=== PATIENT | female | born 1955 | race Caucasian/White ===

== ENCOUNTER → 2017-05-03 15:40 | Outpatient (CLI) | payer OTHER, SELFPAY ==
--- NOTE | 2017-05-03 15:52 | EKG12_ITS ---
Test Reason : PRE-OP Blood Pressure : / mmHG Vent. Rate : 080 BPM Atrial Rate : 080 BPM P-R Int : 152 ms QRS Dur : 088 ms QT Int : 380 ms P-R-T Axes : 068 066 056 degrees QTc Int : 438 ms Normal sinus rhythm Normal ECG No previous ECGs available Confirmed by NANCY HOLM, OCTAVIO ([id number]), publications editor AUBREE LOPEZ ([id number]) on 05/08/2017 4:14:49 PM Referred By: Demond Rodriguez Confirmed By:OCTAVIO CRUZ MD
[2017-05-03 16:44] LABS: Hematocrit 42.2 % (37-47); Mean Corp Hgb Conc 33.2 g/gl (32-36); Mean Corpuscular Hgb 27.6 pg (27.0-32.0); Mean Corpuscular Volume 83.1 fL (81-99); Mean Platelet Vol. 10.1 fl (6.2-12.0); Platelet Count 357 K/mm3 (150-450); RBC Distribution Width CV 13.7 % (11.6-14.6); RBC Distribution Width SD 41.6 fl (35.1-43.9); Red Blood Count 5.08 M/mm3 (4.2-5.4); White Blood Count 13.4 K/mm3 (4.4-11.0)
[2017-05-03 16:50] LABS: Scan Indicated on CBC? Y/N NO
[2017-05-03 17:02] LABS: Anion Gap 5 (5-15); BUN 15 mg/dL (7-18); BUN/Creat Ratio 18.8 RATIO (10-20); Chloride 109 mmol/L (98-107); EST Glomerular Filtration Rate 77 mL/min (>60); Est Glom Filt Rate - Afr Amer 93 mL/min (>60); Glucose 85 mg/dL (74-106); Potassium 4.4 mmol/L (3.5-5.1); Sodium Level 141 mmol/L (136-145)
== END ==
PROVIDERS: Family Provider Family Medicine; PCP Family Medicine; Visit Provider Physician Assistant
DX: Z01.810 Encounter for preprocedural cardiovascular examination (principal); Z01.818 Encounter for other preprocedural examination
CPT/HCPCS: 36415; 80048; 85027; 93005

== ENCOUNTER → 2019-01-13 14:59 | Outpatient (CLI) | payer OTHER, SELFPAY ==
--- NOTE | 2019-01-13 15:03 | BI_ITS ---
MAMMOGRAPHY - BILATERAL SCREENING REASON FOR EXAM: Female, 63 years old. Routine annual screening examination. PERTINENT HISTORY: Non-contributory. Remote right stereotactic breast biopsy. TECHNIQUE: Digital bilateral breast amelia (3D mammographic acquisition) in the CC and MLO projections. 2-D mediolateral oblique (MLO) and craniocaudad (CC) views of both breasts were obtained. CAD: Full Field Digital Mammography with Computer Added Detection was performed. COMPARISON: Comparison is made with prior study dated January 24, 2017 and September 06, 2015. FINDINGS: Breast Composition: There are scattered areas of fibroglandular density. There are no dominant masses or suspicious calcifications. Stable small benign-appearing bilateral axillary lymph nodes. No other significant abnormalities are identified. There has been no significant change since the prior study. BI/SCREEN MAMM (CAD) W/AMELIA BILAT IMPRESSION: Stable bilateral screening mammogram. Yearly follow-up mammogram recommended. (A) ASSESSMENT CATEGORY: BIRADS Category 2: Benign. A letter regarding these results will be sent to the patient by the facility within 30 days. Approximately 10% of breast cancers are not detected by mammography. A normal mammogram should not delay biopsy of a clinically suspicious abnormality. [id number] Electronically Signed: Maximilian Kilpatrick, at 8:04 EST , Service support ,
--- NOTE | 2019-01-13 15:18 | BD_ITS ---
STUDY: DUAL ENERGY X-RAY ABSORPTIOMETRY / DXA REASON FOR EXAM: Female, 63 years old. The patient is postmenopausal. Loss of height. TECHNIQUE: Bone Mineral Density (BMD) measurements of lumbar spine and bilateral hips were obtained. COMPARISON: Comparison is made with prior study dated September 06, 2015. FINDINGS: Lumbar Spine (L1-L4): g/cm2 (1.182) / T-score (0.1) / Z-score (1.7) Findings are suggestive of normal bone density with a low fracture risk. Left Femur Total: g/cm2 (1.041) / T-score (0.3) / Z-score (1.5) Left Femoral Neck: g/cm2 (1.033) / T-score (0.0) / Z-score (1.4) Right Femur Total: g/cm2 (1.022) / T-score (0.1) / Z-score (1.3) Right Femoral Neck: g/cm2 (0.933) / T-score (-0.8) / Z-score (0.7) The T-Scores on the most recent prior examination were: Lumbar Spine (L1-L4): There has been worsening of bone density since the previous examination. Left Femur Total: which represents a worsening of 6.8%. Right Femur Total: which represents a worsening of 6.1%. BD/Dexa Bone Density Study IMPRESSION: The patient is considered normal as outlined below according to World Adan Organization (WHO) criteria with a low fracture risk. There has been worsening of bone density since the previous examination. Reference Information: The T-score is the number of standard deviations above or below the standard which is normal for young adults at their peak bone mineral density. The World Health Organization (WHO) interprets the T-scores as follows: Above -1 Normal bone density Between -1 and -2.5 Osteopenia Equal to / or below -2.5 Osteoporosis As a practical clinical guideline, osteopenia may be graded as follows: Mild -1 through -1.5 Moderate -1.6 through -2.0 Severe -2.1 through -2.4 The Z-score is the number of standard deviations above or below age-matched controls. A Z-score of less than -1.5 would be considered abnormal. References: 1. NIH Osteoporosis and Related Bone Diseases http://www.osteo.org 2. International Society for Clinical Densitometry http://www.iscd.org 3. National Osteoporosis Foundation http://www.nof.org Electronically Signed: Maximilian Kilpatrick, at 13:14 EST , Service support ,
== END ==
PROVIDERS: Family Provider Family Medicine; PCP Family Medicine; Referring Provider Obstetrics & Gynecology Gynecology; Visit Provider Obstetrics & Gynecology Gynecology
DX: Z12.31 Encounter for screening mammogram for malignant neoplasm of breast (principal); Z78.0 Asymptomatic menopausal state; Z13.820 Encounter for screening for osteoporosis
CPT/HCPCS: 77063; 77067; 77080

== ENCOUNTER 2020-03-21 13:37 | Emergency (ER) | payer OTHER, SELFPAY ==
[2020-03-21 13:39] VITALS: BP 189/115; PULSE 54; RESP 18; TEMP 35.4; O2SAT 96; BMI 39.7
--- NOTE | 2020-03-21 13:47 | EKG12_ITS ---
Test Reason : CP Blood Pressure : / mmHG Vent. Rate : 089 BPM Atrial Rate : 089 BPM P-R Int : 134 ms QRS Dur : 084 ms QT Int : 358 ms P-R-T Axes : 045 030 048 degrees QTc Int : 435 ms Sinus rhythm with occasional Premature ventricular complexes Confirmed by KATHLEEN HOLM, MARTHA ([id number]), news editor AUBREE LOPEZ ([id number]) on 03/24/2020 11:46:54 AM Referred By: MYRIAM Confirmed By:MARTHA WANG MD
--- NOTE | 2020-03-21 14:26 | ED.DCSUM_ITS ---
History of Present Illness Chief Complaint: Palpitations Narrative: This patient is a 64-year-old female who was sent over by her nurse practitioner due to an abnormal EKG. Patient has had problems with elevated blood pressure for a couple of months. She says she has had some intermittent chest pressure she denies any chest pain currently. No shortness of breath. No lightheadedness or dizziness. She had made an appointment and was seen today. She had an EKG which showed sinus rhythm with frequent PVCs so was sent here for further evaluation. She otherwise denies any recent illness. No fevers vomiting diarrhea. She takes some supplements but is not treated for diabetes, hypertension, or hyperlipidemia. Past Medical History - Allergies and Home Meds Allergies/Adverse Reactions: Allergies Sulfa (Sulfonamide Antibiotics) Allergy (Verified 03/21/20 13:39) PT UNSURE OF REACTION Primary Care Physician: Billy Goddard III, MD [Primary Care Provider] - Past Medical History: None Review of Systems All systems negative except as indicated General: Denies: Fever Eyes: Denies: Visual changes - bilaterally ENT: Denies: Bilateral ear pain Cardiovascular: Denies: Chest pain Respiratory: Denies: Dyspnea Gastrointestinal: Denies: Nausea, Vomiting Musculoskeletal: Denies: Myalgias, Arthralgias Skin: Denies: Rash Neurological: Denies: Headache Allergy: Denies: Uticaria Physical Exam Vital Signs/Narrative: Vital Signs Temp Pulse Resp BP Pulse Ox 03/21/20 13:39 95.8 F L 54 L 18 189/115 H 96 Inital Vital Signs reviewed: Yes General: Well nourished Head: Normocephalic Eyes: EOMI ENT: Moist mucous membranes Neck: Supple Cardiovascular: Regular rate, Regular rhythm Respiratory: No distress, CTA bilaterally Abdomen: Soft, Nontender Extremities: Nontender Skin: Normal color Neurological: Alert Psychological: Normal affect Diagnostic/Tx/Re-eval Impressions Chest X-Ray 03/21/20 14:28 IMPRESSION: No acute abnormality is seen. Electronically Signed: Maximilian Kilpatrick MD at 15:35 EST , Service support , 03/21/20 14:28 Chest 1 View (Portable) [RAD] Stat Laboratory Results 03/21/20 03/21/20 14:45 14:45 WBC 10.9 RBC 4.75 Hgb 13.6 Hct 40.4 MCV 85.1 MCH 28.6 MCHC 33.7 RDW Std Deviation 39.7 RDW Coeff of Rich 12.9 Plt Count 361 MPV 10.1 Immature Gran % (Auto) 0.500 Neut % (Auto) 73.8 H Lymph % (Auto) 17.9 L [place] % (Auto) 6.3 Eos % (Auto) 0.7 Baso % (Auto) 0.8 Absolute Neuts (auto) 8.0 H Absolute Lymphs (auto) 1.95 Nucleated RBC % 0 Sodium 141 Potassium 4.0 Chloride 108 H Carbon Dioxide 26.0 Anion Gap 7 BUN 13 Creatinine 0.78 Estim Creat Clear Calc 55.82 Est GFR (MDRD) Af Amer 95 Est GFR (MDRD) Non-Af 79 BUN/Creatinine Ratio 16.8 Glucose 97 Calcium 9.2 Magnesium 2.2 Troponin I < 0.015 - Medical Decision Making EKG shows sinus rhythm with frequent PVCs otherwise normal. No acute ischemic changes. Labs are normal. Electrolytes and magnesium are normal. Troponin is negative. One-view portable chest x-ray was obtained. On my interpretation the showed no acute process. Radiology did read this and agrees no acute findings. Patient is asymptomatic at this time. I do not believe she requires hospitalization. I did speak to her primary care provider. We will start Toprol-XL both for hypertension this may help with PVCs as well. Patient vies to follow-up as an outpatient she understands return for new or worsening symptoms. ED Disposition - Plan for ED Patient: Disposition: Home or Assisted Living Diagnosis: Hypertension, PVCs (premature ventricular contractions) Instructions: Premature Ventricular Contractions, ED Hypertension, New (Begin Treatment) Prescriptions: Metoprolol Succinate [Toprol Xl] 25 mg PO DAILY #30 tab.er.24h Prescription Printed Referrals: Billy Goddard III, MD [Primary Care Provider] - Dakota Bravo MD [STAFF PHYSICIAN] -
--- NOTE | 2020-03-21 14:28 | RAD_ITS ---
STUDY: X-RAY CHEST REASON FOR EXAM: Female, 64 years old. Pt states chest pressure and palpitations x couple months TECHNIQUE: Single AP portable view of the chest. COMPARISON: None. FINDINGS: EKG electrodes are seen. Mild elevation of the right hemidiaphragm. The lungs are clear. There is no demonstrated pleural abnormality. Normal size heart. Normal mediastinum and april. Normal visualized pulmonary arteries. There is atherosclerotic tortuosity of the aortic arch and descending thoracic aorta. There are diffuse degenerative changes of the visualized thoracic spine. Normal visualized ribs, clavicles, and shoulders. There is no demonstrated abnormality of the visualized soft tissue structures of the upper abdomen. RAD/Chest 1 View (Portable) IMPRESSION: No acute abnormality is seen. Electronically Signed: Maximilian Kilpatrick MD at 15:35 EST , Service support ,
[2020-03-21 14:58] LABS: Absolute Lymphocyte Count 1.95 X10^3/uL (0.83-4.51); Basophil# 0.09 X10^3/uL; Basophil% 0.8 % (0-1); Eosinophil# 0.08 X10^3/uL; Eosinophils% 0.7 % (0-5); Hematocrit 40.4 % (37-47); Hemoglobin 13.6 g/dL (12.0-15.0); Lymphocyte # 1.95 X10^3/ul (4.0); Lymphocyte % 17.9 % (19-41); Mean Corp Hgb Conc 33.7 g/dL (32-36); Mean Corpuscular Hgb 28.6 pg (27.0-32.0); Mean Corpuscular Volume 85.1 fL (81-99); Mean Platelet Vol. 10.1 fl (6.2-12.0); Monocyte# 0.69 X10^3/uL; Monocyte% 6.3 % (0-10); NRBC Flagged by Analyzer 0 % (0-5); Neutrophil # 8.01 X10^3/uL (2.7-7.7); Neutrophil % 73.8 % (47-70); Platelet Count 361 K/mm3 (150-450); RBC Distribution Width CV 12.9 % (11.6-14.6); RBC Distribution Width SD 39.7 fl (35.1-43.9); Red Blood Count 4.75 M/mm3 (4.2-5.4); White Blood Count 10.9 K/mm3 (4.4-11.0)
[2020-03-21 15:13] LABS: Anion Gap 7 (5-15); BUN 13 mg/dL (7-18); BUN/Creat Ratio 16.8 RATIO (10-20); Calcium,Total 9.2 mg/dL (8.5-10.1); Chloride 108 mmol/L (98-107); Creatinine, Serum 0.78 mg/dL (0.55-1.02); EST Glomerular Filtration Rate 79 mL/min (>60); Est Glom Filt Rate - Afr Amer 95 mL/min (>60); Estimated Creatinine Clearance 55.82 ml/min; Glucose 97 mg/dL (74-106); Magnesium 2.2 mg/dL (1.6-2.6); Sodium Level 141 mmol/L (136-145)
[2020-03-21 16:12] VITALS: BP 132/60; PULSE 67; RESP 16; O2SAT 98
== END 2020-03-21 16:15 | disposition home or self-care (01) ==
PROVIDERS: Emergency Provider Emergency Medicine; PCP Family Medicine
DX: I49.3 Ventricular premature depolarization (principal); I10 Essential (primary) hypertension; R07.89 Other chest pain; Z79.899 Other long term (current) drug therapy; Z88.2 Allergy status to sulfonamides
CPT/HCPCS: 71045; 80048; 83735; 84484; 85025; 93005; 99284; A4216

== ENCOUNTER → 2020-08-24 13:57 | Outpatient (CLI) | payer OTHER, SELFPAY ==
--- NOTE | 2020-08-24 14:00 | BI_ITS ---
MAMMOGRAPHY - BILATERAL SCREENING REASON FOR EXAM: Female, 64 years old. Routine annual screening examination. PERTINENT HISTORY: Non-contributory. Remote right stereotactic breast biopsy. TECHNIQUE: Digital bilateral breast amelia (3D mammographic acquisition) in the CC and MLO projections. 2-D mediolateral oblique (MLO) and craniocaudad (CC) views of both breasts were obtained. CAD: Full Field Digital Mammography with Computer Added Detection was performed. COMPARISON: Comparison is made with prior examination 01/13/2019 and 01/24/2017. FINDINGS: Breast Composition: There are scattered areas of fibroglandular density. There are no dominant masses or suspicious calcifications. Stable small benign appearing bilateral axillary lymph nodes. No other significant abnormalities are identified. There has been no significant change since the prior study. BI/SCRN MAMM (CAD)W/AMELIA BILAT IMPRESSION: Stable bilateral screening mammogram. Yearly follow-up mammogram recommended. (A) ASSESSMENT CATEGORY: BIRADS Category 2: Benign. A letter regarding these results will be sent to the patient by the facility within 30 days. Approximately 10% of breast cancers are not detected by mammography. A normal mammogram should not delay biopsy of a clinically suspicious abnormality. [id number] Electronically Signed: Maximilian Kilpatrick MD at 14:55 EDT , Service support ,
== END ==
PROVIDERS: PCP Family Medicine; Referring Provider Family Medicine; Visit Provider Family Medicine
DX: Z12.31 Encounter for screening mammogram for malignant neoplasm of breast (principal)
CPT/HCPCS: 77063; 77067

== ENCOUNTER → 2022-02-01 | Outpatient (CLI) | payer OTHER, SELFPAY ==
--- NOTE | 2022-02-01 15:18 | BI_ITS ---
MAMMOGRAPHY - BILATERAL SCREENING REASON FOR EXAM: Female, 66 years old. Routine annual screening examination. PERTINENT HISTORY: Non-contributory. Remote right stereotactic breast biopsy. TECHNIQUE: Digital bilateral breast amelia (3D mammographic acquisition) in the CC and MLO projections. 2-D mediolateral oblique (MLO) and craniocaudad (CC) views of both breasts were obtained. CAD: Full Field Digital Mammography with Computer Added Detection was performed. COMPARISON: Comparison is made with prior examination dated 08/24/2020 and 01/13/2019. FINDINGS: Breast Composition: There are scattered areas of fibroglandular density. There are no dominant masses or suspicious calcifications. No other significant abnormalities are identified. There has been no significant change since the prior study. BI/SCRN MAMM (CAD)W/AMELIA BILAT IMPRESSION: Stable bilateral screening mammogram. Yearly follow-up mammogram recommended. (A) ASSESSMENT CATEGORY: BIRADS Category 1: Negative. A letter regarding these results will be sent to the patient by the facility within 30 days. Approximately 10% of breast cancers are not detected by mammography. A normal mammogram should not delay biopsy of a clinically suspicious abnormality. [id number] Electronically Signed: Maximilian Kilpatrick MD at 8:20 EST ,
--- NOTE | 2022-02-01 15:18 | BD_ITS ---
STUDY: DUAL ENERGY X-RAY ABSORPTIOMETRY / DXA REASON FOR EXAM: Female, 66 years old. 627.8Menopausal postmenopausalBONE DENSITY REASON FOR EXAM TECHNIQUE: Bone Mineral Density (BMD) measurements of lumbar spine and bilateral hips were obtained. COMPARISON: Comparison is made with prior study dated 01/13/2019. FINDINGS: Lumbar Spine (L1-L4): g/cm2 (1.071) / T-score (0.8) / Z-score (2.7) Findings are suggestive of normal bone density with a low fracture risk. Left Femur Total: g/cm2 (0.950) / T-score (0.1) / Z-score (1.5) Left Femoral Neck: g/cm2 (0.860) / T-score (0.1) / Z-score (1.8) Right Femur Total: g/cm2 (0.925) / T-score (-0.1) / Z-score (1.3) Right Femoral Neck: g/cm2 (0.824) / T-score (-0.2) / Z-score (1.5) The T-Scores on the most recent prior examination were: Lumbar Spine (L1-L4): There has been improvement of bone density since the previous examination. Left Femur Total: which represents a worsening of 2.5%. Right Femur Total: which represents a worsening of 3.1%. BD/Dexa Bone Density Study IMPRESSION: The patient is considered normal as outlined below according to World Adan Organization (WHO) criteria with a low fracture risk. There has been worsening of bone density since the previous examination. Reference Information: The T-score is the number of standard deviations above or below the standard which is normal for young adults at their peak bone mineral density. The World Health Organization (WHO) interprets the T-scores as follows: Above -1 Normal bone density Between -1 and -2.5 Osteopenia Equal to / or below -2.5 Osteoporosis As a practical clinical guideline, osteopenia may be graded as follows: Mild -1 through -1.5 Moderate -1.6 through -2.0 Severe -2.1 through -2.4 The Z-score is the number of standard deviations above or below age-matched controls. A Z-score of less than -1.5 would be considered abnormal. References: 1. NIH Osteoporosis and Related Bone Diseases www osteo.org 2. International Society for Clinical Densitometry www iscd.org 3. National Osteoporosis Foundation www nof.org Electronically Signed: Maximilian Kilpatrick MD at 12:55 EST ,
== END | disposition home or self-care (01) ==
LOC: OPBD 15:15
PROVIDERS: PCP Family Medicine; Visit Provider Family Medicine
DX: Z12.31 Encounter for screening mammogram for malignant neoplasm of breast (principal); Z78.0 Asymptomatic menopausal state
CPT/HCPCS: 77063; 77067; 77080

== ENCOUNTER → 2023-02-04 | Outpatient (CLI) | payer OTHER, SELFPAY ==
--- NOTE | 2023-02-04 14:57 | BI_ITS ---
MAMMOGRAPHY - BILATERAL SCREENING REASON FOR EXAM: Female, 67 years old. Routine annual screening examination. PERTINENT HISTORY: Non-contributory. History of prior right stereotactic breast biopsy. TECHNIQUE: Digital bilateral breast amelia (3D mammographic acquisition) in the CC and MLO projections. 2-D mediolateral oblique (MLO) and craniocaudad (CC) views of both breasts were obtained. CAD: Full Field Digital Mammography with Computer Added Detection was performed. COMPARISON: Comparison is made with prior study dated February 01, 2022 and August 24, 2020. FINDINGS: Breast Composition: There are scattered areas of fibroglandular density. There are no dominant masses or suspicious calcifications. Stable small benign-appearing bilateral axillary lymph nodes. No other significant abnormalities are identified. There has been no significant change since the prior study. BI/SCRN MAMM (CAD)W/AMELIA BILAT IMPRESSION: Stable bilateral screening mammogram. Yearly follow-up mammogram recommended. (A) ASSESSMENT CATEGORY: BIRADS Category 2: Benign. A letter regarding these results will be sent to the patient by the facility within 30 days. Approximately 10% of breast cancers are not detected by mammography. A normal mammogram should not delay biopsy of a clinically suspicious abnormality. [id number] Electronically Signed: Maximilian Kilpatrick MD at 8:10 EST ,
== END | disposition home or self-care (01) ==
LOC: OPBI 14:56
PROVIDERS: PCP Family Medicine; Referring Provider Family Medicine; Visit Provider Family Medicine
DX: Z12.31 Encounter for screening mammogram for malignant neoplasm of breast (principal)
CPT/HCPCS: 77063; 77067

== ENCOUNTER 2023-07-22 15:24 | Emergency (ER) | payer OTHER, SELFPAY ==
[2023-07-22 15:24] VITALS: BP 172/85; PULSE 72; RESP 18; TEMP 36.4; O2SAT 96; BMI 34.0
--- NOTE | 2023-07-22 15:58 | CT_ITS ---
INDICATION: rlq pain EXAMINATION: CT ABDOMEN AND PELVIS WITH CONTRAST - CT Abdomen And Pelvis W/ Contrast Injection TECHNIQUE: Helically acquired images were obtained of the abdomen and pelvis following IV contrast. A radiation dose optimization technique was used for this scan. IV Contrast dosage and agent: Oral contrast: None. COMPARISON: None. FINDINGS: LOWER CHEST: 3 mm.left costophrenic angle nodule. No cardiomegaly or pericardial effusion. LIVER: Homogeneous. Scattered hepatic hypodensities too small characterize but compatible with cyst, no specific imaging follow-up required. No focal mass. GALLBLADDER AND BILIARY TREE: No calcified gallstones. No gallbladder distension or wall edema. No intra- or extrahepatic biliary ductal dilation. PANCREAS: No focal cystic or solid mass. SPLEEN: Normal size without focal cystic or solid mass. ADRENAL GLANDS: No nodules. KIDNEYS AND URETERS: Moderate right hydronephrosis with multiple renal stones up to 8 mm in size with mild perinephric stranding. Multiple right ureteral stone including 2 adjacent proximal ureteral stones at the L3-L4 level measuring 4.5 mm and 3mm as well as right mid ureteral 3.5 mm stone at the mid sacral level. Mild left hydronephrosis with multiple renal stones up to 6 mm in size. Left ureter is normal in size without stone or surrounding inflammation. Unremarkable bladder . PERITONEUM: No ascites or free air. No other fluid collection. BOWEL: No acute gastric finding. No small bowel distention or focal wall thickening. Appendix is not seen. No right lower quadrant inflammation to suggest appendicitis. Distal colonic diverticulosis without evidence of diverticulitis. LYMPH NODES: No enlarged mesenteric or retroperitoneal lymph nodes. VESSELS: Aorta is non-dilated. URINARY BLADDER: Unremarkable. REPRODUCTIVE ORGANS: Small uterine fibroids are noted. Unremarkable adnexa.. ABDOMINAL WALL: No discrete abdominal or pelvic wall hernia. BONES: No lytic or blastic abnormality. Right hip arthroplasty. Severe left hip osteoarthritis. CT/Abdomen/Pelvis W IV Cont ONLY IMPRESSION: 3 right ureteral stones, 2 in the proximal segment and one in the mid segment, measuring up to 4.5 mm in size, with moderate hydronephrosis. Mild right perinephric inflammation. Other right renal stones are also present. Left nephrolithiasis with mild hydronephrosis, abruptly normalizing at the ureteropelvic junction without ureteral stone. Would consider mild underlying partial uteropelvic junction obstruction. Distal colonic diverticulosis without evidence of diverticulitis. Electronically Signed: Tucker Marley MD at 20:33 EDT ,
[2023-07-22 15:59] LABS: ALB/GLOB Ratio 0.9 RATIO (0.9-2.4); AST(SGOT) 14 U/L (15-37); Alanine Aminotransfer ALT/SGPT 16 U/L (13-56); Albumin, Serum 3.4 g/dL (3.2-5.0); Alkaline Phosphatase 78 U/L (45-117); Anion Gap 8 (5-15); BUN 16 mg/dL (7-18); BUN/Creat Ratio 18.3 RATIO (10-20); Calcium,Total 9.1 mg/dL (8.5-10.1); Chloride 108 mmol/L (98-107); Creatinine, Serum 0.88 mg/dL (0.55-1.02); EST Glomerular Filtration Rate 68 mL/min (>60); Est Glom Filt Rate - Afr Amer 82 mL/min (>60); Estimated Creatinine Clearance 75.23 ml/min; Globulin 3.9 g/dL (2.2-4.2); Glucose 107 mg/dL (74-106); Potassium 3.9 mmol/L (3.5-5.1); Protein, Total 7.3 g/dL (6.4-8.2); Sodium Level 139 mmol/L (136-145)
--- NOTE | 2023-07-22 16:01 | EX.ED.DYSGE1 ---
HPI <BOBBI Mares - Last Filed: 07/22/23 21:35> History of Present Illness Chief Complaint: Abd Pain Narrative Narrative: 67 year old female has had 3 days of RLQ abdominal pain that is constant and waxes and wanes between a sharp and dull pain. She tried peptobismol and then had one episode of explosive diarrhea yesterday morning. Today she felt constipated so she took a stool softener and had a normal BM. No melena or hematochezia. No urinary symptoms. She reports nausea but no vomiting. She has no abdominal surgical history and states she had a normal colonoscopy in the last few years. She does not smoke or drink alcohol. PFSH <BOBBI Mares - Last Filed: 07/22/23 21:35> [facility] Home Medications ?Medication ?Instructions ?Recorded ?Last Taken ?Type metoprolol succinate 25 mg 25 mg PO DAILY ##30 03/21/20 07/22/23 Rx tablet,extended release 24 hr ascorbic acid (vitamin C) 500 mg 500 mg PO BID 07/22/23 07/21/23 History chewable tablet (Acerola C) celecoxib 200 mg capsule (Celebrex) 200 mg PO BID 07/22/23 07/21/23 History cholecalciferol (vitamin D3) 50 2,000 unit PO DAILY 07/22/23 07/21/23 History mcg (2,000 unit) capsule (D3-2000) cinnamon bark 500 mg capsule 500 mg PO DAILY 07/22/23 07/21/23 History (Cinnamon) docusate sodium 100 mg capsule 100 mg PO BID 07/22/23 07/22/23 History (Colace) hydrocodone-acetaminophen 5-325mg 1 tab PO Q6H PRN PRN Pain 3 days 07/22/23 Unknown Rx 5mg-325mg #12 TABLETS lisinopril 20 mg tablet 20 mg PO DAILY 07/22/23 07/22/23 History ondansetron 4 mg disintegrating 4 mg PO Q6H PRN nausea and 07/22/23 Unknown Rx tablet vomiting #12 tabs tamsulosin 0.4 mg capsule (Flomax) 0.4 mg PO DAILY 14 days #14 caps 07/22/23 Unknown Rx vitamin B12 500 mcg-folic acid 400 1 tab PO DAILY 07/22/23 07/21/23 History mcg tablet Allergy/AdvReac Type Severity Reaction Status Date / Time Sulfa (Sulfonamide Allergy PT UNSURE Verified 07/22/23 15:24 Antibiotics) OF REACTION Social History Smoking Status: Never smoker ROS <BOBBI Mares - Last Filed: 07/22/23 21:35> ROS ED Constitutional Constitutional ED: Denies chills or fever(s) Cardiovascular Cardiovascular: Denies chest pain Respiratory/Chest Respiratory/Chest: Denies dyspnea Gastrointestinal Gastrointestinal: Reports abdominal pain and nausea; Denies vomiting Genitourinary Genitourinary ED: Denies dysuria or hematuria EXAM <BOBBI Mares - Last Filed: 07/22/23 21:35> Physical Exam Const Vital Signs: 07/22/23 15:24 07/22/23 17:24 07/22/23 19:00 Temperature 97.5 F L Temperature Source Temporal Pulse Rate 72 78 65 Respiratory Rate 18 16 15 Blood Pressure 172/85 H 167/74 H 155/65 H Blood Pressure Mean 114 105 95 Pulse Ox 96 96 97 Oxygen Delivery Method Room Air Room Air Room Air 07/22/23 21:00 07/22/23 21:09 Temperature 98.2 F Temperature Source Pulse Rate 61 64 Respiratory Rate 18 18 Blood Pressure 167/48 H 167/48 H Blood Pressure Mean 87 87 Pulse Ox 95 95 Oxygen Delivery Method Room Air Positive well nourished and well developed General Appearance ED: well developed Resp normal respiratory effort and clear to auscultation bilaterally Cardio regular rate, regular rhythm and no murmurs GI non-tender and non-distended GI Narrative: soft, TTP RLQ, no guarding or rebound Palpation: soft Back/Spine no CVA tenderness Extremity normal to inspection Neuro Sensorium / Orientation: alert Psych mental status grossly normal <Dr. Edward Dominique DO - Last Filed: 07/22/23 22:16> Physical Exam Const Vital Signs: 07/22/23 15:24 07/22/23 17:24 07/22/23 19:00 Temperature 97.5 F L Temperature Source Temporal Pulse Rate 72 78 65 Respiratory Rate 18 16 15 Blood Pressure 172/85 H 167/74 H 155/65 H Blood Pressure Mean 114 105 95 Pulse Ox 96 96 97 Oxygen Delivery Method Room Air Room Air Room Air 07/22/23 21:00 07/22/23 21:09 Temperature 98.2 F Temperature Source Pulse Rate 61 64 Respiratory Rate 18 18 Blood Pressure 167/48 H 167/48 H Blood Pressure Mean 87 87 Pulse Ox 95 95 Oxygen Delivery Method Room Air [facility] <BOBBI Mares - Last Filed: 07/22/23 21:35> [facility] Narrative Medical decision making narrative: Differential: appendicitis, colitis, kidney stone, UTI Patient presents with right lower quadrant abdominal pain. She appears well and nontoxic and is afebrile and hemodynamically stable. She has mild RLQ tenderness on exam with no peritoneal signs. Labs show white count of 14.6, BMP unremarkable, UA has leukocyte esterase but no other signs of infection. CT scan shows 3 obstructive right ureteral stones in the proximal ureter all less than 5 mm with moderate hydronephrosis. The size stone should pass on its own and she has normal renal function. She had improvement after IV Toradol, Zofran and fluids and is comfortable with outpatient management. I prescribed [place], Flomax, and Zofran and provided a urology referral. I discussed return precautions and she was discharged in stable condition. Lab Data Attestation: I reviewed the patient's lab results. Labs: Laboratory Results - last 24 hr 07/22/23 07/22/23 15:33 16:20 WBC 14.6 H RBC 4.39 Hgb 12.0 Hct 36.7 L MCV 83.6 MCH 27.3 MCHC 32.7 RDW Std Deviation 39.9 RDW Coeff of Rich 13.2 Plt Count 392 MPV 10.0 Immature Gran % (Auto) 0.500 Neut % (Auto) 83.7 H Lymph % (Auto) 9.9 L [place] % (Auto) 5.2 Eos % (Auto) 0.2 Baso % (Auto) 0.5 Absolute Neuts (auto) 12.2 H Absolute Lymphs (auto) 1.44 Nucleated RBC % 0 Sodium 139 Potassium 3.9 Chloride 108 H Carbon Dioxide 23.0 Anion Gap 8 BUN 16 Creatinine 0.88 Estim Creat Clear Calc 75.23 Est GFR (MDRD) Af Amer 82 Est GFR (MDRD) Non-Af 68 BUN/Creatinine Ratio 18.3 Glucose 107 H Calcium 9.1 Total Bilirubin 0.70 AST 14 L ALT 16 Alkaline Phosphatase 78 Total Protein 7.3 Albumin 3.4 Globulin 3.9 Albumin/Globulin Ratio 0.9 Urine Color Yellow Urine Clarity Clear Urine pH 6.5 Ur Specific [place] 1.005 Urine Protein Negative Urine Glucose (UA) Normal Urine Ketones Negative Urine Occult Blood 50 H Urine Nitrite Negative Urine Bilirubin Negative Urine Urobilinogen Normal Ur Leukocyte Esterase 100 H Urine RBC 0-5 SEEN Urine WBC 0-5 SEEN Ur Squamous Epith Cells 0-5 SEEN Urine Bacteria 0 SEEN Urine Mucus 0 SEEN Radiography Diagnostic Testing: Clinical Impression(s) from Imaging Studies Abdomen/Pelvis CT 07/22/23 15:58 IMPRESSION: 3 right ureteral stones, 2 in the proximal segment and one in the mid segment, measuring up to 4.5 mm in size, with moderate hydronephrosis. Mild right perinephric inflammation. Other right renal stones are also present. Left nephrolithiasis with mild hydronephrosis, abruptly normalizing at the ureteropelvic junction without ureteral stone. Would consider mild underlying partial uteropelvic junction obstruction. Distal colonic diverticulosis without evidence of diverticulitis. Electronically Signed: Tucker Marley MD at 20:33 EDT , <Dr. Edward Dominique, DO - Last Filed: 07/22/23 22:16> [facility] Narrative Medical decision making narrative: Differential: appendicitis, colitis, kidney stone, UTI Patient presents with right lower quadrant abdominal pain. She appears well and nontoxic and is afebrile and hemodynamically stable. She has mild RLQ tenderness on exam with no peritoneal signs. Labs show white count of 14.6, BMP unremarkable, UA has leukocyte esterase but no other signs of infection. CT scan shows 3 obstructive right ureteral stones in the proximal ureter all less than 5 mm with moderate hydronephrosis. The size stone should pass on its own and she has normal renal function. She had improvement after IV Toradol, Zofran and fluids and is comfortable with outpatient management. I prescribed [place], Flomax, and Zofran and provided a urology referral. I discussed return precautions and she was discharged in stable condition. This patient was seen with a PA/[employer] Individually assessed they patient including history and physical. I have reviewed everything on the chart that is available and agree with the documentation provided by the PA/[employer] including discussion about the assessment, treatment plan, discussion, and return precautions. Patient presenting with right lower quadrant pain. Differential as above. Ultimately found to have stones in the proximal ureter on the right side with some moderate hydronephrosis although her pains been well-controlled. I feel she is a good candidate for discharge home with pain control and nausea control. Lab work is a leukocytosis of 14.6 however her urinalysis is negative. This is likely reactive. Patient will need follow-up with urology and return precautions were discussed. Lab Data Labs: Laboratory Results - last 24 hr 07/22/23 07/22/23 15:33 16:20 WBC 14.6 H RBC 4.39 Hgb 12.0 Hct 36.7 L MCV 83.6 MCH 27.3 MCHC 32.7 RDW Std Deviation 39.9 RDW Coeff of Rich 13.2 Plt Count 392 MPV 10.0 Immature Gran % (Auto) 0.500 Neut % (Auto) 83.7 H Lymph % (Auto) 9.9 L [place] % (Auto) 5.2 Eos % (Auto) 0.2 Baso % (Auto) 0.5 Absolute Neuts (auto) 12.2 H Absolute Lymphs (auto) 1.44 Nucleated RBC % 0 Sodium 139 Potassium 3.9 Chloride 108 H Carbon Dioxide 23.0 Anion Gap 8 BUN 16 Creatinine 0.88 Estim Creat Clear Calc 75.23 Est GFR (MDRD) Af Amer 82 Est GFR (MDRD) Non-Af 68 BUN/Creatinine Ratio 18.3 Glucose 107 H Calcium 9.1 Total Bilirubin 0.70 AST 14 L ALT 16 Alkaline Phosphatase 78 Total Protein 7.3 Albumin 3.4 Globulin 3.9 Albumin/Globulin Ratio 0.9 Urine Color Yellow Urine Clarity Clear Urine pH 6.5 Ur Specific [place] 1.005 Urine Protein Negative Urine Glucose (UA) Normal Urine Ketones Negative Urine Occult Blood 50 H Urine Nitrite Negative Urine Bilirubin Negative Urine Urobilinogen Normal Ur Leukocyte Esterase 100 H Urine RBC 0-5 SEEN Urine WBC 0-5 SEEN Ur Squamous Epith Cells 0-5 SEEN Urine Bacteria 0 SEEN Urine Mucus 0 SEEN Radiography Diagnostic Testing: Clinical Impression(s) from Imaging Studies Abdomen/Pelvis CT 07/22/23 15:58 IMPRESSION: 3 right ureteral stones, 2 in the proximal segment and one in the mid segment, measuring up to 4.5 mm in size, with moderate hydronephrosis. Mild right perinephric inflammation. Other right renal stones are also present. Left nephrolithiasis with mild hydronephrosis, abruptly normalizing at the ureteropelvic junction without ureteral stone. Would consider mild underlying partial uteropelvic junction obstruction. Distal colonic diverticulosis without evidence of diverticulitis. Electronically Signed: Tucker Marley MD at 20:33 EDT Reading Location ID and State: [facility] / [place] Tel , Service support , Discharge Plan Triage Chief Complaint: Abd Pain ED Midlevel Provider: Maxine Ott ED Provider: Edward Dominique Dx/Rx/DC Orders Clinical Impression: Renal calculus, right, Abdominal pain Instructions: ED Kidney Stone with Pain Prescriptions: New hydrocodone-acetaminophen 5-325 mg tablet 1 tab PO Q6H PRN PRN (Reason: Pain) 3 Days Qty: 12 0RF tamsulosin [Flomax] 0.4 mg capsule 0.4 mg PO DAILY 14 Days Qty: 14 0RF ondansetron 4 mg tablet,disintegrating 4 mg PO Q6H PRN (Reason: nausea and vomiting) Qty: 12 0RF No Action metoprolol succinate 25 MG tablet extended release 24 hr 25 mg PO DAILY Qty: 30 0RF celecoxib [Celebrex] 200 mg capsule 200 mg PO BID lisinopril 20 mg tablet 20 mg PO DAILY cholecalciferol (vitamin D3) [D3-2000] 50 mcg (2,000 unit) capsule 2,000 unit PO DAILY cinnamon bark [Cinnamon] 500 mg capsule 500 mg PO DAILY vitamin E35-clftd acid 500-400 mcg tablet 1 tab PO DAILY Rx Instructions: administer with a meal ascorbic acid (vitamin C) [Acerola C] 500 mg tablet,chewable 500 mg PO BID docusate sodium [Colace] 100 mg capsule 100 mg PO BID Stand Alone Forms: ED Work / School Excuse Primary Care Provider: Alexander Coluter Referrals: Jose Solorio MD [Med Staff - Active Staff] - Alexander Coulter MD [Primary Care Provider] - Activity Restrictions/Additional Instructions: The CT scan shows 3 right-sided kidney stones all less than 5 mm in size. Take hydrocodone as needed for pain. If this causes nausea vomiting take with Zofran. Please call the urology office for follow-up appointment. Return to the emergency room if you have worsening symptoms such as severe pain, fever, or inability to urinate. Print Language: Prydeinig Disposition Disposition: Home, Self Care Discharge Date/Time: 07/22/23 21:15
[2023-07-22 16:06] LABS: Absolute Lymphocyte Count 1.44 X10^3/uL (0.83-4.51); Absolute Neutrophil Count 12.2 X10^3/uL (2.0-7.7); Basophil# 0.08 X10^3/uL; Basophil% 0.5 % (0-1); Eosinophil# 0.03 X10^3/uL; Eosinophils% 0.2 % (0-5); Hematocrit 36.7 % (37-47); Lymphocyte # 1.44 X10^3/ul (0.83-4.51); Lymphocyte % 9.9 % (19-41); Mean Corp Hgb Conc 32.7 g/dL (32-36); Mean Corpuscular Hgb 27.3 pg (27.0-32.0); Mean Corpuscular Volume 83.6 fL (81-99); Monocyte# 0.75 X10^3/uL; Monocyte% 5.2 % (0-10); NRBC Flagged by Analyzer 0 % (0-5); Neutrophil # 12.18 X10^3/uL (2.7-7.7); Neutrophil % 83.7 % (47-70); Platelet Count 392 K/mm3 (150-450); RBC Distribution Width CV 13.2 % (11.6-14.6); RBC Distribution Width SD 39.9 fl (35.1-43.9); Red Blood Count 4.39 M/mm3 (4.2-5.4); White Blood Count 14.6 K/mm3 (4.4-11.0)
[2023-07-22] MEDS: Ondansetron 4 MG/2 ML Vial IV (16:17)
[2023-07-22] MEDS: 0.9% Normal Saline (1000mL) 1,000 ML 999 ML IV (16:17)
[2023-07-22 16:28] LABS: Bacteria 0 SEEN /hpf (None Seen); Mucous, Urine 0 SEEN /hpf (<or=2+)
[2023-07-22 16:51] LABS: Color, Urine Yellow (Yellow); Glucose, Dipstick Normal (Normal); Ketone-Dipstick Negative (Negative); Leukocyte Esterase-Dipstick 100 /ul (Negative); Nitrite-Dipstick Negative (Negative); Occult Blood-Urine 50 /ul (Negative); Protein-Dipstick Negative (Negative); Specific Gravity, Urine 1.005 (1.002-1.030); Urine Bilirubin Dipstick Negative (Negative); Urine Clarity Clear (Clear); Urine Urobilinogen Normal (Normal); Urine pH 6.5 (5.0 - 8.0)
[2023-07-22 17:03] LABS: Squamous Epithelial Cells - UA 0-5 SEEN /hpf (5-10); White Blood Cells 0-5 SEEN /hpf (0-5)
[2023-07-22 17:04] LABS: Red Blood Cells-Urine 0-5 SEEN /hpf (0-5)
[2023-07-22 17:24] VITALS: BP 167/74; PULSE 78; RESP 16; O2SAT 96
[2023-07-22 19:00] VITALS: BP 155/65; PULSE 65; RESP 15; O2SAT 97
[2023-07-22 21:00] VITALS: BP 167/48; PULSE 61; RESP 18; O2SAT 95
[2023-07-22] MEDS: Ketorolac 15 MG/ML Vial IV (21:02)
[2023-07-22 21:09] VITALS: BP 167/48; PULSE 64; RESP 18; TEMP 36.8; O2SAT 95
== END 2023-07-22 21:15 | disposition home or self-care (01) ==
PROVIDERS: Emergency Provider Student in an Organized Health Care Education/Training Program; PCP Family Medicine; Visit Provider Student in an Organized Health Care Education/Training Program
DX: N13.2 Hydronephrosis with renal and ureteral calculous obstruction (principal); Z79.899 Other long term (current) drug therapy
CPT/HCPCS: 74177; 80053; 81001; 85025; 96361; 96374; 96375; 99283; J7030; Q9967; A4216; J2405

== ENCOUNTER 2023-08-16 08:07 | Day surgery (SDC) | payer OTHER, SELFPAY ==
[2023-08-16] VITALS (10 sets, daily range): BP systolic 140–179; BP diastolic 61–90; PULSE 64–77; RESP 16; TEMP 36.1–36.3; O2SAT 95–100; BMI 34.0
[2023-08-16] MEDS: Lactated Ringers 1,000 ML 15 ML IV (08:41)
--- NOTE | 2023-08-16 09:08 | PCM.PRE.AN2 ---
ASA Classification* ASA Classification ASA Classification: 2 Assessment & Plan Anesthesia* Anesthesia Assessment Anesthesia Assessment: Discussed sedation and/or anesthesia options, risks, benefits, and alternatives with patient/parents/legal guardian/POA. Questions invited. The patient/parents/legal guardian/POA seems to understand and agrees to proceed with anesthesia plan. Reviewed the physical assessment, medical history, allergy history and patient home medications list prior to surgery/procedure/anesthetic and documented any changes. Performed airway and anesthesia risk assessments. 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 When Was Last Pacemaker Check QUESTION #4 FULL TEXT: You/Your Family Experience fever (hyperthermia) with Anesthesia Last Oral Intake Last Oral intake: Last Oral Intake NPO since 23:00 08/16/23 08:37 Meds taken in AM with sips of Yes 08/16/23 08:37 water? Meds patient instructed to take am of surgery PONV PONV - metal sander and finisher: PONV - metal sander and finisher Female Yes 08/02/23 11:24 HX of Motion Sickness No 08/02/23 11:24 HX of N/V After Surgery No 08/02/23 11:24 Non-Smoker Yes 08/02/23 11:24 Duration of Surgery greater Yes 08/02/23 11:24 than 60 minutes Number of Risk Factors 3 08/02/23 11:24 PONV Score Moderate Risk 08/02/23 11:24 Height & Weight Height & Weight: Anesthesia: Height & Weight Height 5 ft 8 in 08/16/23 08:37 Weight: 101.6 kg 08/16/23 08:37 Body Mass Index (BMI) 34.0 08/16/23 08:37 Respiratory Assessment Respiratory Assessment - metal sander and finisher: Respiratory Tract Infection Hx - metal sander and finisher Hx Respiratory Tract Infection No 08/02/23 11:24 STOP Sleep Apnea STOP Sleep Apnea - metal sander and finisher: STOP Sleep Apnea - metal sander and finisher Hx Hypertension Yes: PER PT, NOT CONTROLLED 08/02/23 11:24 ON MEDS - PCP MONITORING Hx Sleep Apnea Yes 08/02/23 11:24 CPAP Yes: NON-COMPLIANT 08/02/23 11:24 BIPAP No 08/02/23 11:24 Do you snore loudly (louder than talking or can be heard Do you often feel tired/ fatigued/ sleepy during daytime? Has anyone observed you stop breathing during sleep? STOP Results Positive 08/02/23 11:24 QUESTION #5 FULL TEXT : Do you snore loudly (louder than talking or can be heard through closed doors)? 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 Specify any problems Hx of Preganancy in last 3 No 08/02/23 11:24 Months Nurse Filling Out Transfusion [id number] 08/02/23 11:24 & Questions: Date: 08/02/23 08/02/23 11:24 Time: 11:27 08/02/23 11:24 Patient unable to answer at this time (ie. confused, unrespo /Reproduction History /Reproductive History - metal sander and finisher: /Reproductive Hx- metal sander and finisher Hx Now No 08/02/23 11:24 Gestational Age (in weeks): EDC: Hx Hx Para Hx Section SAB No 08/02/23 11:24 Active Medications Active Medications: Current Medications Generic Name Dose Route Start Last Admin Trade Name Freq PRN Reason Stop Dose Admin Cefazolin Sodium 2 gm/ Sodium 110 mls @ 150 mls/hr 08/16/23 10:30 Chloride IV 08/16/23 11:13 PREOP ONE Lactated Ringer's 1,000 mls @ 15 mls/hr 08/16/23 08:30 08/16/23 08:41 IV 15 mls/hr .Q48H VANESSA Administration Anesthesia Focused Assessment* Temperature: 97.3 F Pulse Rate: 64 Blood Pressure: 179/80 Respiratory Rate: 16 Pulse Ox: 100 Airway Assessment Mouth opens: >3 cm Mallampati Score: II Focused Labs Anesthesia Preop lab: CBC WBC 14.6 K/mm3 (4.4-11.0) H 07/22/23 15:33 RBC 4.39 M/mm3 (4.2-5.4) 07/22/23 15:33 Hgb 12.0 g/dL (12.0-15.0) 07/22/23 15:33 Hct 36.7 % (37-47) L 07/22/23 15:33 Plt Count 392 K/mm3 (150-450) 07/22/23 15:33 CHEMISTRY Potassium 3.9 mmol/L (3.5-5.1) 07/22/23 15:33 Sodium 139 mmol/L (136-145) 07/22/23 15:33 Magnesium 2.2 mg/dL (1.6-2.6) 03/21/20 14:45 BUN 16 mg/dL (7-18) 07/22/23 15:33 Creatinine 0.88 mg/dL (0.55-1.02) 07/22/23 15:33 Glucose 107 mg/dL (74-106) H 07/22/23 15:33 COAG Review of Systems (Anesthesia) ROS Narrative System reviewed and no additional complaints, except as documented. [facility] Medical History Wears glasses Post-menopausal Arthritis Ambulates with cane CPAP (continuous positive airway pressure) dependence Sleep apnea Non-smoker History of edema Hypertension Home Medications ?Medication ?Instructions ?Recorded ?Last Taken ?Type metoprolol succinate 25 mg 25 mg PO DAILY ##30 03/21/20 08/16/23 Rx tablet,extended release 24 hr ascorbic acid (vitamin C) 500 mg 500 mg PO DAILY 07/22/23 07/21/23 History chewable tablet (Acerola C) celecoxib 200 mg capsule (Celebrex) 200 mg PO BID 07/22/23 07/21/23 History cholecalciferol (vitamin D3) 50 2,000 unit PO DAILY 07/22/23 07/21/23 History mcg (2,000 unit) capsule (D3-2000) cinnamon bark 500 mg capsule 500 mg PO DAILY 07/22/23 07/21/23 History (Cinnamon) hydrocodone-acetaminophen 5-325mg 1 tab PO Q6H PRN PRN Pain 3 days 07/22/23 Unknown Rx 5mg-325mg #12 TABLETS lisinopril 20 mg tablet 20 mg PO DAILY 07/22/23 08/16/23 History ondansetron 4 mg disintegrating 4 mg PO Q6H PRN nausea and 07/22/23 Unknown Rx tablet vomiting #12 tabs tamsulosin 0.4 mg capsule (Flomax) 0.4 mg PO DAILY 14 days #14 caps 07/22/23 Unknown Rx vitamin B12 500 mcg-folic acid 400 1 tab PO DAILY 07/22/23 07/21/23 History mcg tablet amoxicillin 500 mg capsule 2,000 mg PO DAILY PRN PRN 1HR 08/02/23 Unknown History PRIOR TO DENTAL PROCEDURE Allergy/AdvReac Type Severity Reaction Status Date / Time Sulfa (Sulfonamide Allergy PT UNSURE Verified 08/16/23 08:36 Antibiotics) OF REACTION Surgical History History of tonsillectomy and adenoidectomy History of cataract surgery History of lateral meniscus repair of left knee History of right hip replacement History of colonoscopy Social History Smoking Status: Never smoker
--- NOTE | 2023-08-16 09:49 | HP.PCM_ITS ---
HPI - General General Date of Admission: 08/16/23 Chief Complaint: Right kidney stones obstructive HPI Narrative LAVONNE ARIAS, is a 67 F who presents for laser lithotripsy of multiple stones in the right kidney and possible stent placement to understand this p ossible the stones may pass, it is possible it may not be able to treat all the stones as possible she may need multiple procedures talk about the risk of procedure including bleeding and infection pain related to the stent or is passing stone fragments. [facility] Medical History Wears glasses Post-menopausal Arthritis Ambulates with cane CPAP (continuous positive airway pressure) dependence Sleep apnea Non-smoker History of edema Hypertension Home Medications ?Medication ?Instructions ?Recorded ?Last Taken ?Type metoprolol succinate 25 mg 25 mg PO DAILY ##30 03/21/20 08/16/23 Rx tablet,extended release 24 hr ascorbic acid (vitamin C) 500 mg 500 mg PO DAILY 07/22/23 07/21/23 History chewable tablet (Acerola C) celecoxib 200 mg capsule (Celebrex) 200 mg PO BID 07/22/23 07/21/23 History cholecalciferol (vitamin D3) 50 2,000 unit PO DAILY 07/22/23 07/21/23 History mcg (2,000 unit) capsule (D3-2000) cinnamon bark 500 mg capsule 500 mg PO DAILY 07/22/23 07/21/23 History (Cinnamon) hydrocodone-acetaminophen 5-325mg 1 tab PO Q6H PRN PRN Pain 3 days 07/22/23 Unknown Rx 5mg-325mg #12 TABLETS lisinopril 20 mg tablet 20 mg PO DAILY 07/22/23 08/16/23 History ondansetron 4 mg disintegrating 4 mg PO Q6H PRN nausea and 07/22/23 Unknown Rx tablet vomiting #12 tabs tamsulosin 0.4 mg capsule (Flomax) 0.4 mg PO DAILY 14 days #14 caps 07/22/23 Unknown Rx vitamin B12 500 mcg-folic acid 400 1 tab PO DAILY 07/22/23 07/21/23 History mcg tablet amoxicillin 500 mg capsule 2,000 mg PO DAILY PRN PRN 1HR 08/02/23 Unknown History PRIOR TO DENTAL PROCEDURE Allergy/AdvReac Type Severity Reaction Status Date / Time Sulfa (Sulfonamide Allergy PT UNSURE Verified 08/16/23 08:36 Antibiotics) OF REACTION Surgical History History of tonsillectomy and adenoidectomy History of cataract surgery History of lateral meniscus repair of left knee History of right hip replacement History of colonoscopy Social History Smoking Status: Never smoker Vital Signs Vital Signs Vital Signs: 08/16/23 08:37 08/16/23 08:37 08/16/23 09:08 Temperature 97.3 F L 97.3 F L Temperature Source Temporal Pulse Rate 64 64 Respiratory Rate 16 16 Respiratory Pattern Normal Blood Pressure 179/80 H 179/80 H Blood Pressure Mean 113 Blood Pressure Source Monitor Blood Pressure Position Semi-Fowlers Blood Pressure Location Right Arm Pulse Ox 100 100 Oxygen Delivery Method Room Air Weight Weight: 101.6 kg Body Mass Index (BMI) 34.0 Assessment & Plan Assessment/Plan (1) Right ureteral calculus:
[2023-08-16] MEDS: Cefazolin 2 GM in 0.9% Normal Saline (100mL Bag) 100 ML IV (10:06)
--- NOTE | 2023-08-16 11:03 | DCINST_ITS ---
Discharge Instructions Diet Discharge Diet: No restrictions Activity Discharge Activity: Return to Normal Activity and May Not Drive (while taking narcotic pain medications.) Dressing / Incision Call your doctor if you observe: Fever of 101 or Higher Follow Up Care Please Follow Up With: Jose Solorio MD When: Call [phone] for an appointment Test Results: Test results from this visit will be discussed in further detail at your follow- up appointment, if applicable. Discharge Plan Admission Primary Reason for Your Visit: right ureteroscopy laser stones and stent Attending Provider: Jose Solorio Primary Care Provider: Alexander Coulter Instructions Print Language: [place]guill[place] Discharge Orders/Prescriptions Prescriptions: New ciprofloxacin HCl [Cipro] 500 mg tablet 500 mg PO BID Qty: 6 0RF ibuprofen 600 mg tablet 600 mg PO Q6H PRN (Reason: fever or pain) Qty: 20 0RF Continued metoprolol succinate 25 MG tablet extended release 24 hr 25 mg PO DAILY Qty: 30 0RF amoxicillin 500 mg capsule 2,000 mg PO DAILY PRN PRN (Reason: 1HR PRIOR TO DENTAL PROCEDURE) celecoxib [Celebrex] 200 mg capsule 200 mg PO BID lisinopril 20 mg tablet 20 mg PO DAILY cholecalciferol (vitamin D3) [D3-2000] 50 mcg (2,000 unit) capsule 2,000 unit PO DAILY cinnamon bark [Cinnamon] 500 mg capsule 500 mg PO DAILY vitamin Z30-[id number] acid 500-400 mcg tablet 1 tab PO DAILY Rx Instructions: administer with a meal ascorbic acid (vitamin C) [Acerola C] 500 mg tablet,chewable 500 mg PO DAILY hydrocodone-acetaminophen 5-325 mg tablet 1 tab PO Q6H PRN PRN (Reason: Pain) 3 Days Qty: 12 0RF tamsulosin [Flomax] 0.4 mg capsule 0.4 mg PO DAILY 14 Days Qty: 14 0RF ondansetron 4 mg tablet,disintegrating 4 mg PO Q6H PRN (Reason: nausea and vomiting) Qty: 12 0RF Referrals / Follow Up: Jose Solroio MD [Med Staff - Active Staff] - Alexander Coulter MD [Primary Care Provider] - Disposition Disposition (needs filled in before D/C Order can be placed): Home, Self Care
--- NOTE | 2023-08-16 11:03 | PCM.OPRPT ---
Report of Operation Date of Procedure: 08/16/23 Pre-Operative Diagnosis: Multiple obstructing right ureteral calculi Post-Operative Diagnosis: Same Surgery/Procedure Performed:: Cystoscopy, right ureteroscopy laser lithotripsy of stones and stent placement Description of Surgical Findings:: Indication is a 67-year-old female who has obstructing stones in the mid right ureter multiple stones causing obstruction she does have bilateral renal stones will see if the stones will be able to be treated originally she was consented for bilateral ureteroscopy. Patient was taken back to the operating room after smooth induction of anesthesia she was placed in dorsolithotomy position. I went to the bladder with a 21 [place] rigid cystourethroscope This was done after she was prepped and draped in usual sterile fashion identified the right ureteral orifice I then cannulated the orifice with a Pollick catheter put the wire in up on the right side and over the wire went over the flexible ureteroscope once I got to the for stone then I used a 360 ?m laser fiber and lasered the stone little tiny pieces and went up the ureter was found a second stone lasered the stone a little tiny pieces went up the ureter and found 1/3 stone and lasered the stone little tiny pieces and then went to the kidney as able to find a stone fragment in the upper pole of the kidney on CAT scan there was some lower stone pulled fragments with these were not visible could not find them by ureteroscopy the lower pole very difficult to reach so after successfully lasering all the stones along the course of the ureter on the right side I worked my way down the ureter lasered multiple fragments and then came out of the kidney and out of the bladder. I then put a wire up on the right side and then put a stent on the right side. Decided not to do the left side and the right side as it was so difficult to the lungs and the laser of the stones out she does have some stones in the left side we will plan to do shockwave lithotripsy to reach the stones in the left side these are lower pole stones in the right side also lower pole stones. Talked with family about either elective shockwave lithotripsy or observation for the other stone fragments that could be reached. Surgeon: Jose Solorio Type of Anesthesia: General Drains: stent right Estimated Blood Loss (mL): 0 Admit VTE Documentation VTE Present on Admission: No VTE Mechan Device Prophylaxis: SCD's VTE Pharm Prophylaxis ordered?: No
--- NOTE | 2023-08-16 11:10 | PCM.POST.ANE ---
Anesthesia: Postop Eval I Current Vital Signs Temperature: 97 F Pulse Rate: 77 Blood Pressure: 173/81 Respiratory Rate: 16 Pulse Ox: 97 Oxygen Delivery Method: Room Air Assessment Airway patent: Yes Spontaneous unlabored respirations: Yes Mental status: Awake and Calm nausea: No Vomiting: No Anesthesia Complication: No Fluid Hydration Crystalloid volume administer (ml): 700 Total IV fluid infused: 700 Progress Note Anesthesia document: Postop Eval 1 completed: Yes
--- NOTE | 2023-08-16 15:18 | POSTOPAN2_ITS ---
Anesthesia Postop Eval I Sum Postop Eval Completion status Anesthesia document: Postop Eval 1 completed: Yes Anesthesia Postop Eval I Summary Anesthesia Postop Eval I Summary: Anesthesia Postop Eval I: Assessment Summary Airway patent Yes 08/16/23 11:11 SENIOR QUALITATIVE RESEARCHER.[email or web address] Spontaneous unlabored Yes 08/16/23 11:11 SENIOR QUALITATIVE RESEARCHER.OT respirations Mental status Awake,Calm 08/16/23 11:11 SENIOR QUALITATIVE RESEARCHER.MDOT nausea No 08/16/23 11:11 SENIOR QUALITATIVE RESEARCHER.MDOT Vomiting No 08/16/23 11:11 SENIOR QUALITATIVE RESEARCHER.MDOT Anesthesia Postop Eval I: Fluid Summary Crystalloid volume administer 700 08/16/23 11:11 SENIOR QUALITATIVE RESEARCHER.MDOT (ml) Colloids volume administered ( ml) Blood Product volume administered (ml) Total IV fluid infused 700 08/16/23 11:11 SENIOR QUALITATIVE RESEARCHER.RODNEY Anesthesia Postop Eval I: Summary Notes Anesthesia Complication No 08/16/23 11:11 SENIOR QUALITATIVE RESEARCHER.OT Anesthesia Complication Comment: Post-operative progress note Anesthesia: Postop Eval II Evaluation Mental status: Awake and Calm Pain Level: 0 nausea: No Vomiting: No Complications Anesthesia Complication: No
--- NOTE | 2023-08-16 15:18 | PCM.POSTANE2 ---
Anesthesia Postop Eval I Sum Postop Eval Completion status Anesthesia document: Postop Eval 1 completed: Yes Anesthesia Postop Eval I Summary Anesthesia Postop Eval I Summary: Anesthesia Postop Eval I: Assessment Summary Airway patent Yes 08/16/23 11:11 PLASTIC CARD GRADER [email or web address].[email or web address] Spontaneous unlabored Yes 08/16/23 11:11 PLASTIC CARD GRADER CARDROOM.OT respirations Mental status Awake,Calm 08/16/23 11:11 PLASTIC CARD GRADER CARDROOM.MDOT nausea No 08/16/23 11:11 PLASTIC CARD GRADER CARDROOM.MDOT Vomiting No 08/16/23 11:11 PLASTIC CARD GRADER CARDROOM.MDOT Anesthesia Postop Eval I: Fluid Summary Crystalloid volume administer 700 08/16/23 11:11 PLASTIC CARD GRADER CARDROOM.MDOT (ml) Colloids volume administered ( ml) Blood Product volume administered (ml) Total IV fluid infused 700 08/16/23 11:11 PLASTIC CARD GRADER CARDROOM.RODNEY Anesthesia Postop Eval I: Summary Notes Anesthesia Complication No 08/16/23 11:11 PLASTIC CARD GRADER CARDROOM.OT Anesthesia Complication Comment: Post-operative progress note Anesthesia: Postop Eval II Evaluation Mental status: Awake and Calm Pain Level: 0 nausea: No Vomiting: No Complications Anesthesia Complication: No
== END 2023-08-16 12:41 | disposition home or self-care (01) ==
LOC: SDC 08:08 → AC 08:10
PROVIDERS: PCP Family Medicine; Referring Provider Urology; Visit Provider Urology
PROC: 0TJ98ZZ Inspection of Ureter, Via Natural or Artificial Opening Endoscopic (ICD-10-PCS; CPT 52352; principal; 2023-08-16 10:20)
DX: N20.2 Calculus of kidney with calculus of ureter (principal); I10 Essential (primary) hypertension; Z79.899 Other long term (current) drug therapy
CPT/HCPCS: 52356; 00873; J7120; C1769; C2617; J2405

== ENCOUNTER → 2024-02-06 | Outpatient (CLI) | payer OTHER, SELFPAY ==
--- NOTE | 2024-02-06 15:26 | BI_ITS ---
MAMMOGRAPHY - BILATERAL SCREENING REASON FOR EXAM: Female, 68 years old. Routine annual screening examination. PERTINENT HISTORY: Non-contributory. History of remote right stereotactic breast biopsy. TECHNIQUE: Digital bilateral breast amelia (3D mammographic acquisition) in the CC and MLO projections. 2-D mediolateral oblique (MLO) and craniocaudad (CC) views of both breasts were obtained. CAD: Full Field Digital Mammography with Computer Added Detection was performed. COMPARISON: Comparison is made with prior study February 04, 2023 and February 01, 2022. FINDINGS: Breast Composition: There are scattered areas of fibroglandular density. There are no dominant masses or suspicious calcifications. Stable small benign-appearing bilateral axillary lymph nodes. No other significant abnormalities are identified. There has been no significant change since the prior study. BI/SCRN MAMM (CAD)W/AMELIA BILAT IMPRESSION: Stable bilateral screening mammogram. Yearly follow-up mammogram recommended. (A) ASSESSMENT CATEGORY: BIRADS Category 2: Benign. A letter regarding these results will be sent to the patient by the facility within 30 days. Approximately 10% of breast cancers are not detected by mammography. A normal mammogram should not delay biopsy of a clinically suspicious abnormality. [id number] Electronically Signed: Maximilian Kilpatrick MD at 8:36 EST ,
--- NOTE | 2024-02-06 15:26 | BD_ITS ---
STUDY: DUAL ENERGY X-RAY ABSORPTIOMETRY / DXA REASON FOR EXAM: Female, 68 years old. M810 TECHNIQUE: Bone Mineral Density (BMD) measurements of lumbar spine and left hip were obtained. COMPARISON: Comparison is made with prior study dated February 01, 2022. FINDINGS: Lumbar Spine (L1-L4): g/cm2 (1.080) / T-score (0.9) / Z-score (2.9) Findings are suggestive of normal bone density with a low fracture risk. Left Femur Total: g/cm2 (0.926) / T-score (-0.1) / Z-score (1.4) Left Femoral Neck: g/cm2 (0.816) / T-score (-0.3) / Z-score (1.5) The T-Scores on the most recent prior examination were: Lumbar Spine (L1-L4): There has been improvement of bone density since the previous examination. Left Femur Total: which represents a worsening of 2.5%. BD/Dexa Bone Density Study IMPRESSION: The patient is considered normal as outlined below according to World Adan Organization (WHO) criteria with a low fracture risk. There has been worsening of bone density since the previous examination. Reference Information: The T-score is the number of standard deviations above or below the standard which is normal for young adults at their peak bone mineral density. The World Health Organization (WHO) interprets the T-scores as follows: Above -1 Normal bone density Between -1 and -2.5 Osteopenia Equal to / or below -2.5 Osteoporosis As a practical clinical guideline, osteopenia may be graded as follows: Mild -1 through -1.5 Moderate -1.6 through -2.0 Severe -2.1 through -2.4 The Z-score is the number of standard deviations above or below age-matched controls. A Z-score of less than -1.5 would be considered abnormal. References: 1. NIH Osteoporosis and Related Bone Diseases www osteo.org 2. International Society for Clinical Densitometry www iscd.org 3. National Osteoporosis Foundation www nof.org Electronically Signed: Maximilian Kilpatrick MD at 10:37 EST ,
== END | disposition home or self-care (01) ==
LOC: OPBD 15:24
PROVIDERS: PCP Family Medicine; Referring Provider Family Medicine; Visit Provider Family Medicine
DX: Z12.31 Encounter for screening mammogram for malignant neoplasm of breast (principal); Z13.820 Encounter for screening for osteoporosis; M81.0 Age-related osteoporosis without current pathological fracture
CPT/HCPCS: 77063; 77067; 77080

== ENCOUNTER → 2024-10-06 | Outpatient (CLI) | payer OTHER, SELFPAY ==
--- NOTE | 2024-10-06 15:01 | RAD_ITS ---
PROCEDURE: ABDOMEN SINGLE VIEW 10/06/2024 REASON FOR EXAM: CALCULUS OF KIDNEY TECHNIQUE: ABDOMEN SINGLE VIEW COMPARISON: None. FINDINGS: There is a nonobstructive bowel gas pattern. There is a cluster of stones projected over the lower pole of the right kidney measuring 11 mm in conglomerate. There are 2 stones projected over the lower pole of the left kidney measuring 8 mm and 5 mm, respectively. There are no stones projected over the path of either ureter. There is multilevel degenerative disc disease of the lumbar spine with mild dextroscoliosis. There is a right total hip arthroplasty. 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 RAD/Abdomen Single View IMPRESSION: Bilateral nephrolithiasis. Other findings as noted. Reading Location: [place] [id number]
== END | disposition home or self-care (01) ==
LOC: RAD 14:57
PROVIDERS: PCP Family Medicine; Referring Provider Urology; Visit Provider Urology
DX: N20.0 Calculus of kidney (principal)
CPT/HCPCS: 74018

== ENCOUNTER → 2025-02-08 | Outpatient (CLI) | payer OTHER, SELFPAY ==
--- NOTE | 2025-02-08 15:57 | BI_ITS ---
EXAM: SCRN MAMM (CAD)W/AMELIA BILAT DATE: 02/08/2025 CLINICAL HISTORY: F, Age 69 y/o , SCREENING No family history. Prior right stereotactic breast biopsy. TECHNIQUE: Procedure Code: [id number] Modality: MG Procedure: SCRN MAMM (CAD)W/AMELIA BILAT COMPARISON: Prior exam(s) dated February 06, 2020. FINDINGS: TISSUE DENSITY: There are scattered areas of fibroglandular density. Bilateral Breast Mammographic Findings: No significant masses, calcifications or other abnormalities are identified. No suspicious masses, areas of developing architectural distortion, or suspicious calcifications. There has been no significant interval change. BI/SCRN MAMM (CAD)W/AMELIA BILAT IMPRESSION: Stable bilateral screening mammogram. OVERALL FINAL ASSESSMENT BI-RADS 1: NEGATIVE. RECOMMENDATION: Routine annual follow-up in 1 Year Additional Recommendation none A letter with findings and recommendations will be mailed to the patient. Reading Location: [facility]
== END | disposition home or self-care (01) ==
LOC: OPBI 15:56
PROVIDERS: PCP Family Medicine; Referring Provider Family Medicine; Visit Provider Family Medicine
DX: Z12.31 Encounter for screening mammogram for malignant neoplasm of breast (principal)
CPT/HCPCS: 77063; 77067